=== PATIENT | male | born 1985 | race Caucasian/White ===

== ENCOUNTER → 2016-08-30 | Outpatient (CLI) | payer BC ==
[~2016-08-30] VITALS: Ht 180.3 cm; Wt 207.3 kg
[~2016-08-30] MED LIST: ALBUAER19 INH; VNTHFA/IN INH
[2016-08-30 15:18] VITALS: BP 173/86; PULSE 77; Ht 180.3 cm; Wt 207.3 kg
== END | disposition home or self-care (01) ==
LOC: C.NEUR 14:13
PROVIDERS: ATTEND Internal Medicine Pulmonary Disease
DX: G47.33 Obstructive sleep apnea (adult) (pediatric) (principal); E66.01 Morbid (severe) obesity due to excess calories

== ENCOUNTER 2017-01-01 08:31 | Emergency (ER) | payer BC ==
[~2017-01-01] VITALS: Ht 180.3 cm; Wt 218.2 kg
[~2017-01-01 08:31] MED LIST changes: -VNTHFA/IN INH
[2017-01-01 08:32] VITALS: TEMP 36.8; Ht 180.3 cm; Wt 218.2 kg
[2017-01-01] MEDS ORDERED: VNTHFA/IN INH (08:49)
--- NOTE | 2017-01-01 08:50 | EMERGENCY ROOM VISIT NOTE ---
History Report prepared by Sridhar: Justine Stout Under the Supervision of: Dr. Aicha Barreto D.O. First contact with patient: 08:38 Chief Complaint: CHEST PAIN Stated Complaint: CHEST PAIN,SOB Nursing Triage Summary: pt reports intermittent cp after lunch 1 day ago located midsternal , describes as sharp pain lasting 30 sec then going away . has happened 3 times this AM along with radiation to L arm. reports increased sob with exertion History of Present Illness The patient is a 31 year old male who presents to the Emergency Room with complaints of intermittent chest pain beginning yesterday. The patient states that he experienced 2 episodes yesterday while at work and another 3 episodes this morning. The patient states that each episode lasts about 30 seconds and he describes the pain during the episodes as sharp. He notes pain radiates to his left arm. He states that he is not exerting himself when the pain begins. The patient is experiencing nausea and shortness of breath. He notes a soreness between his shoulders for the past week. The patient has no cardiac or pulmonary history. He denies recent long traveling. Pt denies headache, change in vision, dizziness, fevers, chest pain, swelling to lower extremities, vomiting, diarrhea, pain with urination, and melena. Source of History: patient Onset: yesterday Position: chest Quality: sharp Timing: intermittent Associated Symptoms: + SOB, + nausea Note: The patient is experiencing left arm pain. Review of Systems See HPI for pertinent positives & negatives. A total of 10 systems reviewed and were otherwise negative. Past Medical & Surgical Medical Problems: (1) Asthma (2) Cellulitis (3) Morbid obesity (4) Pneumonia (5) Tonsillectomy Family History Diabetes mellitus Heart disease Hypertension Social History Smoking Status: Never Smoker Alcohol Use: occasionally Drug Use: none Marital Status: Housing Status: lives with significant other Occupation Status: employed Current/Historical Medications Scheduled Albuterol Hfa (Ventolin Hfa), 2-4 PUFFS INH Q4H Allergies Coded Allergies: Levofloxacin (Verified Allergy, Mild, RASH, 01/01/17) Physical Exam Vital Signs Date Time Temp Pulse Resp B/P (MAP) Pulse Ox O2 Delivery O2 Flow Rate FiO2 01/01/17 11:31 88 18 144/79 98 01/01/17 10:10 78 18 149/77 98 Room Air 01/01/17 08:48 81 01/01/17 08:32 36.8 84 20 156/86 97 Room Air Physical Exam GENERAL: morbidly obese, alert, well appearing, well nourished, no distress, non -toxic EYE EXAM: normal conjunctiva, PERRL and EOM's grossly intact OROPHARYNX: no exudate, no erythema, lips, buccal mucosa, and tongue normal and mucous membranes are moist NECK: supple, no nuchal rigidity, no adenopathy, non-tender LUNGS: Clear to auscultation. Normal chest wall mechanics HEART: no murmurs, S1 normal and S2 normal ABDOMEN: abdomen soft, non-tender, normo-active bowel sounds, no masses, no rebound or guarding. BACK: Back is symmetrical on inspection and there is no deformity, no midline tenderness, no CVA tenderness. SKIN: no rashes and no bruising UPPER EXTREMITIES: upper extremities are grossly normal. LOWER EXTREMITIES: No pitting edema. NEURO EXAM: Normal sensorium, cranial nerves II-XII [grossly] intact, normal speech, no [gross] weakness of arms, no [gross] weakness of legs. [No drift. Finger to nose intact. Gross sensation intact.] Medical Decision & Procedures ER Provider Diagnostic Interpretation: XRAY result has been interpreted by the radiologist and reviewed by me. SINGLE VIEW CHEST CLINICAL HISTORY: Atypical chest pain. FINDINGS: 2 AP, portable, upright chest radiographs are compared to study dated 03/25/2016 and correlated with chest CT dated 03/15/2014. The examination is significantly degraded by portable technique, large body habitus, and apical lordotic positioning. The heart is top normal for projection. There is mild chronic elevation of the right hemidiaphragm. The lungs and pleural spaces are grossly clear. No pneumothorax is seen. The bony thorax is grossly intact. IMPRESSION: No acute cardiopulmonary abnormality. Electronically signed by: Dinesh Flower M.D. 01/01/2017 9:12 AM Dictated Date/Time: 01/01/2017 9:10 AM Laboratory Results 01/01/17 08:44 Red Blood Count 5.38, Mean Corpuscular Volume 82.0, Mean Corpuscular Hemoglobin 28.4, Mean Corpuscular Hemoglobin Concent 34.7, Mean Platelet Volume 9.1, Neutrophils (%) (Auto) 62.3, Lymphocytes (%) (Auto) 23.7, Monocytes (%) (Auto) 9.8, Eosinophils (%) (Auto) 2.6, Basophils (%) (Auto) 0.7, Neutrophils # (Auto) 4.72, Lymphocytes # (Auto) 1.80, Monocytes # (Auto) 0.74, Eosinophils # (Auto) 0.20, Basophils # (Auto) 0.05 01/01/17 08:44 Test 01/01/17 08:44 White Blood Count 7.58 K/uL (4.8-10.8) Red Blood Count 5.38 M/uL (4.7-6.1) Hemoglobin 15.3 g/dL (14.0-18.0) Hematocrit 44.1 % (42-52) Mean Corpuscular Volume 82.0 fL (80-100) Mean Corpuscular Hemoglobin 28.4 pg (25-34) Mean Corpuscular Hemoglobin Concent 34.7 g/dl (32-36) Platelet Count 236 K/uL (130-400) Mean Platelet Volume 9.1 fL (7.4-10.4) Neutrophils (%) (Auto) 62.3 % Lymphocytes (%) (Auto) 23.7 % Monocytes (%) (Auto) 9.8 % Eosinophils (%) (Auto) 2.6 % Basophils (%) (Auto) 0.7 % Neutrophils # (Auto) 4.72 K/uL (1.4-6.5) Lymphocytes # (Auto) 1.80 K/uL (1.2-3.4) Monocytes # (Auto) 0.74 K/uL (0.11-0.59) Eosinophils # (Auto) 0.20 K/uL (0-0.5) Basophils # (Auto) 0.05 K/uL (0-0.2) RDW Standard Deviation 41.0 fL (36.4-46.3) RDW Coefficient of Variation 13.6 % (11.5-14.5) Immature Granulocyte % (Auto) 0.9 % Immature Granulocyte # (Auto) 0.07 K/uL (0.00-0.02) Prothrombin Time 10.8 SECONDS (9.0-12.0) Prothromb Time International Ratio 1.0 (0.9-1.1) D-Dimer 280 ug/L FEU (0-500) Anion Gap 8.0 mmol/L (3-11) Est Creatinine Clear Calc Drug Dose 231.5 ml/min Estimated GFR () 132.7 Estimated GFR (Non- 114.5 BUN/Creatinine Ratio 15.1 (10-20) Calcium Level 8.9 mg/dl (8.5-10.1) Total Bilirubin 0.5 mg/dl (0.2-1) Aspartate Amino Transf (AST/SGOT) 21 U/L (15-37) Alanine Aminotransferase (ALT/SGPT) 38 U/L (12-78) Alkaline Phosphatase 51 U/L (45-117) Troponin I < 0.015 ng/ml (0-0.045) Total Protein 8.1 gm/dl (6.4-8.2) Albumin 3.8 gm/dl (3.4-5.0) Globulin 4.3 gm/dl (2.5-4.0) Albumin/Globulin Ratio 0.9 (0.9-2) Lipase 129 U/L (73-393) Laboratory results per my review. ECG Indication: chest pain Rate (beats per minute): 78 Rhythm: normal sinus Findings: T-wave inversion (lead 3 and aVF), no ectopy, other (normal axis and normal intervals) ED Course 0841: The patient was evaluated in room B12. A complete history and physical exam was performed. 1009: I reevaluated the patient. He has had no recurrence of the pain. I discussed his test results with him. I discussed the need for follow up. 1043: Upon reevaluation, the patient is feeling better. I discussed the findings and the treatment plan with the patient. He verbalizes agreement and understanding. He was discharged home. Medical Decision The patient is a 31 year old male who presents to the ED with complaints of chest pain. Differential diagnoses includes but is not limited to acute coronary syndrome, myocardial infarction, pericarditis, pulmonary embolus, aortic dissection, pneumonia, pneumothorax, musculoskeletal, shingles, esophageal. Medication Reconciliation: I attest that I have personally reviewed the patient' s current medication list. Blood pressure screening: Patient was found to have an elevated blood pressure and was referred to their primary doctor for recheck and further treatment. Patient well-appearing here with no recurrent episodes of chest pain. Vital signs stable throughout. Labs and imaging reassuring. Patient's heart score 1. Discussed with patient follow-up with family doctor, possible differential diagnoses, symptoms to watch and return for, he verbalized understanding was agreeable with plan. Doubt dissection, aneurysm, ACS, PE, tamponade, effusion, perforation, GI bleed, pneumothorax, infiltrate. Patient with mild hypertension here, however doubt hypertensive urgency/emergency. Impression Primary Impression: Chest pain Additional Impressions: Morbid obesity Hypertension Scribe Attestation The scribe's documentation has been prepared under my direction and personally reviewed by me in its entirety. I confirm that the note above accurately reflects all work, treatment, procedures, and medical decision making performed by me. Departure Information Dispostion Home / Self-Care Referrals Kristian Olea M.D. (PCP) Forms HOME CARE DOCUMENTATION FORM, IMPORTANT VISIT INFORMATION Patient Instructions My [facility] Additional Instructions Please follow up with your family doctor. Please continue to monitor for any recurrence of symptoms. If you develop any recurrent symptoms, develop trouble breathing, dizziness, vomiting, sweating, fevers, or any other new or concerning symptoms please return the emergency room. Problem Qualifiers Primary Impression: Chest pain Chest pain type: unspecified Qualified Codes: R07.9 - Chest pain, unspecified Additional Impressions: Hypertension Hypertension type: unspecified Qualified Codes: I10 - Essential (primary) hypertension
[2017-01-01 08:58] LABS: BASO % 0.7 %; BASO ABS # 0.05 K/uL (0-0.2); COMPLETE YES; EOS % 2.6 %; HEMATOCRIT 44.1 % (42-52); IG% 0.9 %; LYMPH % 23.7 %; MEAN CORPUSCULAR HEMOGLOBIN 28.4 pg (25-34); MEAN CORPUSCULAR HGB CONC 34.7 g/dl (32-36); MEAN PLATELET VOLUME 9.1 fL (7.4-10.4); MONO % 9.8 %; NEUT % 62.3 %; PLATELET COUNT 236 K/uL (130-400); RED BLOOD COUNT 5.38 M/uL (4.7-6.1); WHITE BLOOD COUNT 7.58 K/uL (4.8-10.8)
--- NOTE | 2017-01-01 09:13 | DIAGNOSTIC IMAGING REPORT ---
SINGLE VIEW CHEST CLINICAL HISTORY: Atypical chest pain. FINDINGS: 2 AP, portable, upright chest radiographs are compared to study dated 03/25/2016 and correlated with chest CT dated 03/15/2014. The examination is significantly degraded by portable technique, large body habitus, and apical lordotic positioning. The heart is top normal for projection. There is mild chronic elevation of the right hemidiaphragm. The lungs and pleural spaces are grossly clear. No pneumothorax is seen. The bony thorax is grossly intact. IMPRESSION: No acute cardiopulmonary abnormality. Electronically signed by: Dinesh Flower M.D. 01/01/2017 9:12 AM Dictated Date/Time: 01/01/2017 9:10 AM
[2017-01-01 09:18] LABS: ALT/SGPT 38 U/L (12-78); BLOOD UREA NITROGEN 13 mg/dl (7-18); BUN/CREATININE RATIO 15.1 (10-20); CALCIUM 8.9 mg/dl (8.5-10.1); CARBON DIOXIDE 23 mmol/L (21-32); CHLORIDE 109 mmol/L (98-107); CREATININE 0.85 mg/dl (0.60-1.40); GLUCOSE 104 mg/dl (70-99); POTASSIUM 3.8 mmol/L (3.5-5.1); SODIUM 140 mmol/L (136-145)
[2017-01-01 09:23] LABS: ALB/GLOB RATIO 0.9 (0.9-2); ALKALINE PHOSPHATASE 51 U/L (45-117); AST/SGOT 21 U/L (15-37)
[2017-01-01 09:32] LABS: PROTHROMBIN TIME (PATIENT) 10.8 SECONDS (9.0-12.0)
[2017-01-01 11:31] VITALS: BP 144/79; PULSE 88; O2SAT 98
== END 2017-01-01 11:32 | disposition home or self-care (01) ==
LOC: C.EDB 08:32
DX: R07.9 Chest pain, unspecified (principal); E66.01 Morbid (severe) obesity due to excess calories; I10 Essential (primary) hypertension; J45.909 Unspecified asthma, uncomplicated; L03.90 Cellulitis, unspecified; Z87.01 Personal history of pneumonia (recurrent); Z83.3 Family history of diabetes mellitus; Z82.49 Family history of ischemic heart disease and other diseases of the circulatory system

== ENCOUNTER 2024-12-10 03:47 | Observation (INO) ==
--- NOTE | 2024-12-10 04:20 | Emergency Department Note ---
Impression & Plan Chest pain ED Provider Note NAME: TAMELA MARTIN AGE: 39 SEX: Male INFORMANT: Patient ED PROVIDER(S): Tyson Thompson MD CHIEF COMPLAINT: Chest pain PLAN: Disposition: Admitted Outpatient prescription management: none Referral: None MEDICAL DECISION MAKING: Patient presented because of chest pain. His ECG did show some subtle changes laterally. Old changes inferiorly. Chest x-ray was unremarkable. Patient CBC and chemistry panels are negative. The patient had a negative cardiac troponin. He was treated with aspirin nitroglycerin and did note resolution of his pain. His blood pressure was much improved as well. Consultation was made with Dr. Angel of the [facility] service. Case discussed and diagnostics were reviewed. Patient was evaluated in the ER for further management. We did discuss initiation of CT of the chest. This was ordered. I refer you to the EMR for further details. Care/management discussed with: utilities manager Level of care consideration(s): After review of the information above and other included data, I feel the patient requires escalation of care to admission Triage Nursing notes: reviewed and agree them. Vital Signs: reviewed and remarkable for hypertension Additional History obtained from: none Chronic Medical/Social Conditions affecting care: none Prior/ Outside/ External records reviewed: none Differential Diagnosis: Cardiac ischemia, aortic dissection, pulmonary embolism, pneumothorax, pneumonia, pericarditis, myocarditis, esophageal rupture, GERD, cholecystitis, pancreatitis, musculoskeletal, as well as other pathologies. Diagnostics, independently interpreted by me: ECG: Twelve-lead ECG reveals a sinus rhythm with first-degree AV block at 87 bpm. Septal Q wave. Inferior lateral T wave and ST depression. When compared to 02/25/2024 the inferior changes are old. The subtle lateral depression is new. Cardiac Monitoring: Cardiac monitoring ordered by me: The patient was placed on continuous cardiac monitoring and observed. It revealed a normal sinus rhythm at 80 beats per minute without ectopy or evidence of dysrhythmia. Medical decision rules: Patient is moderate risk by HEART SCORE. Imaging studies: Chest x-ray. Findings: A chest x-ray was performed and revealed no pneumothorax, effusion, infiltrate, pulmonary edema, free air under the diaphragm, or wide mediastinum. Impression: No acute disease. I refer you to the EMR for further details. HPI: 39 year old Male arrives for evaluation of chest pain. This started about 6 hours ago and is retrosternal. The patient also notes the following associated symptoms, none. Patient states this occurred after eating. He has been able to drink water and everything feels like it is going down. He does not feel like any food is stuck. Denies any prior history of the same.. The patient has found no relieving factors. Current pain is rated as 3/10. At its peak pain was a 7. Pt denies LOC, headache, fevers, chills, diaphoresis, visual changes, neck pain, breathing difficulties, nausea, vomiting, abdominal pain, back pain, melena, hematochezia, urinary symptoms, numbness, weakness, lymphadenopathy, rash, or other complaints. His. PAST MEDICAL HISTORY: See Below, diabetes, hypertension PAST SURGICAL HISTORY: See Below, SOCIAL HISTORY: See Below, non-smoker HOME MEDICATIONS: See Below ALLERGIES: See Below VITALS: See Below PHYSICAL EXAMINATION: GENERAL: Awake, alert, well-appearing, in no distress HENT: Normocephalic, atraumatic. Oropharynx unremarkable. EYES: Normal conjunctiva. Sclera non-icteric. NECK: Inspection normal. Non-tender. Supple. No nuchal rigidity. FROM. No masses. RESPIRATORY: Clear to auscultation. No wheezes. No rales. Normal respiratory effort. CARDIAC: Normal rate. Normal rhythm. No murmurs. No rubs. Extremities warm and well perfused. Pulses equal. No JVD. GI: Soft, non-distended. No tenderness to palpation. No rebound or guarding. No masses. RECTAL: Deferred. MUSCULOSKELETAL: Atraumatic. Chest examination reveals no tenderness. The back is symmetrical on inspection without obvious abnormality. There is no CVA tenderness to palpation. No joint edema. LOWER EXTREMITIES: Chronic venous discoloration noted. There is discrepancy in size from the left leg to the right leg with the left being larger. Patient states that this is chronic. 1+ edema on the right and 2+ on the left NEURO: Normal sensorium. No sensory or motor deficits noted. SKIN: No rash or jaundice noted. 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) Family history of sudden cardiac in father Left ventricular hypertrophy Hypertension Depression Hepatic steatosis (Chronic) Morbid obesity (Chronic) Nocturnal hypoxemia Severe sleep apnea 2012, TXED WITH bipap Medical History Abnormal electrocardiography Mass of left lower leg Morbid obesity with BMI of 60.0-69.9, adult Diabetes type 2, uncontrolled Surgical History History of hand surgery History of placement of ear tubes Hx of tonsillectomy (09/04/12) Family History Aunt Diabetes Grandmother (Paternal) Heart disease Father Hypertension Sleep apnea Diabetes Obesity Mother Sleep apnea Obesity Denies family history of Ovarian cancer Prostate cancer Depression Myocardial infarction Breast cancer Colorectal cancer Stroke Social History Smoking Status: Never smoker Second Hand Exposure: No; Do You Dip or Chew Tobacco: No; Hx Alcohol Use: Yes Alcohol type: beer, wine and hard liquor Alcohol Intake Frequency: Monthly or Less Hx Substance Use: No Preferred Language: Lebanese Communication Ability: Effective Visual Impairment: Limited Hearing Ability: Normal 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 marital status: Current Living Situation: Spouse and Family current occupational status: employed 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 How many Children do You have: 3 Feels Safe at Home: Yes Childhood Exposure to Second-Hand Smoke: No Diet: regular caffeine: Yes Dental Care, Regularly: No Physical Activity Frequency: Does not Exercise Seatbelt Use: sometimes Sunscreen Use: Yes (only when hes swimming ) Allergies Allergies Allergy/AdvReac Type Severity Reaction Status Date / Time levofloxacin Allergy Intermediate RASH Verified 09/08/24 11:09 metformin AdvReac Intermediate made him Verified 09/08/24 11:09 "castro" Home Meds Home Medications Medication Instructions Recorded Confirmed cetirizine 10 mg capsule (Zyrtec) 10 mg PO QAM 05/16/21 09/08/24 oxymetazoline 0.05 % nasal spray 2 spray intranasal Q12H PRN 03/12/24 09/08/24 (Mucinex Sinus-Max) Congestion Previous Rx's Medication Instructions Recorded amlodipine 5 mg tablet 5 mg PO QAM #30 tabs 01/22/24 BiPap Supplies #1 ea 05/13/24 losartan 100 1 tab PO DAILY #90 tabs 09/08/24 mg-hydrochlorothiazide 25 mg tablet cephalexin 500 mg capsule 500 mg PO QID #28 caps 09/10/24 tirzepatide 15 mg/0.5 mL 15 mg (0.5 mL) subcut Q7D #2 mL 10/27/24 subcutaneous pen injector Results & Data (ED) Vital Signs Vital Signs - 24 hr 12/10/24 03:51 12/10/24 04:07 12/10/24 04:17 Temperature 36.6 C Temperature Source Oral Pulse Rate 88 80 Pulse Rate [Apical] Pulse Rhythm [Apical] Respiratory Rate 24 Respiratory Effort / Characteristics Respiratory Depth Respiratory Pattern Blood Pressure 194/98 H Blood Pressure [Right Arm] Blood Pressure Mean 130 Blood Pressure Mean [Right Arm] Blood Pressure Position [Right Arm] Pulse Oximetry 96 95 Oxygen Delivery Method Room Air Room Air Sepsis Recent Fever Within 48 Hours No Sepsis New/Unexplained Change in Mental Status No Sepsis Action Taken by Nursing No Action Required 12/10/24 05:08 12/10/24 06:26 Temperature Temperature Source Pulse Rate Pulse Rate [Apical] 85 69 Pulse Rhythm [Apical] Regular Respiratory Rate 18 20 Respiratory Effort / Characteristics Non-Labored Spontaneous Respiratory Depth Normal Respiratory Pattern Regular Blood Pressure Blood Pressure [Right Arm] 153/78 H 125/79 Blood Pressure Mean Blood Pressure Mean [Right Arm] 103 94 Blood Pressure Position [Right Arm] Semi-fowlers Pulse Oximetry 96 98 Oxygen Delivery Method Room Air Room Air Sepsis Recent Fever Within 48 Hours Sepsis New/Unexplained Change in Mental Status Sepsis Action Taken by Nursing Laboratory Data 12/10/24 04:17 12/10/24 04:17 Lab Results 12/10/24 Range/Units 04:17 WBC 7.92 (4.8-10.8) K/ul RBC 5.46 (4.70-6.10) M/uL Hgb 15.4 (14.0-18.0) g/dl Hct 44.1 (42.0-52.0) % MCV 80.8 (80.0-100.0) fL MCH 28.2 (25.0-34.0) pg MCHC 34.9 (32.0-36.0) g/dL RDW Std Deviation 38.3 (36.4-46.3) fL RDW Coeff of Boom 13.3 (11.5-14.5) % Plt Count 251 (130-400) K/uL MPV 9.8 (9.4-12.4) fL Immature Gran % (Auto) 0.4 % Neut % (Auto) 64.7 % Lymph % (Auto) 24.9 % [place] % (Auto) 7.8 % Eos % (Auto) 1.6 % Baso % (Auto) 0.6 % Neut # (Auto) 5.12 (1.40-6.50) K/uL Lymph # (Auto) 1.97 (1.20-3.40) K/uL [place] # (Auto) 0.62 H (0.11-0.59) K/uL Eos # (Auto) 0.13 (0.00-0.50) K/uL Baso # (Auto) 0.05 (0.00-0.20) K/uL Immature Gran # (Auto) 0.03 (0.01-0.20) K/uL Sodium 136 (136-145) mmol/L Potassium 3.4 L (3.5-5.1) mmol/L Chloride 105 (98-107) mmol/L Carbon Dioxide 23 (21-32) mmol/L Anion Gap 8 (3-11) BUN 16 (6-23) mg/dl Creatinine 0.74 (0.6-1.4) mg/dl Est Cr Clr Drug Dosing 201.5 ml/min eGFR 116.74 BUN/Creatinine Ratio 21.6 H (10-20) Glucose 151 H (70-99(Fasting)) mg/dl Calcium 8.7 (8.6-10.3) mg/dl Magnesium 1.6 L (1.7-2.4) mg/dl Total Bilirubin 0.6 (0.2-1.0) mg/dl AST 19 (13-39) U/L ALT 31 (7-52) U/L Alkaline Phosphatase 49 (34-104) U/L Troponin I High Sens 4.4 (0-20) pg/ml Total Protein 7.3 (6.0-8.3) gm/dl Albumin 3.8 (3.4-5.0) gm/dl Globulin 3.5 (2.5-4.0) gm/dl Albumin/Globulin Ratio 1.1 (0.9-2) Lipase 37 (11-82) U/L Administered Medications Discontinued Medications Aspirin (Aspirin Chew 324 Mg) 324 mg PO NOW STA Stop: 12/10/24 04:51 Last Admin: 12/10/24 05:08 Dose: 324 mg Documented By: LEONOR Ioversol (Optiray 320 125ml) 125 ml IV ONCE ONE Stop: 12/10/24 06:21 Last Admin: 12/10/24 06:20 Dose: 118 ml Documented By: ABI Nitroglycerin (Nitroglycerin Sl 0.4 Mg/Tab Tab) 0.4 mg SL NOW STA Stop: 12/10/24 04:51 Last Admin: 12/10/24 05:08 Dose: 0.4 mg Documented By: LEONOR Imaging Data Radiologist's Impression: Chest X-Ray 12/10/24 03:58 EXAM: XR chest 1V portable CLINICAL HISTORY: Chest pain, nonspecific TECHNIQUE: Radiograph of chest was acquired. 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 The cardiomediastinal silhouette is within normal limits. No acute osseous abnormality. IMPRESSION: 1. No acute cardiopulmonary disease. No other new interval abnormality since prior study. Electronically signed by Maldonado Eddy 12-10-2024 05:42 AM Chest CTA 12/10/24 05:44 EXAM: CT angio chest PE protocol CLINICAL HISTORY: chest pain, eval for PE TECHNIQUE: Contiguous axial images were obtained from the neck base through the upper abdomen following intravenous administration of iodinated contrast material. Angiographic images were processed, 3D MIP images were acquired for interpretation. If IV contrast material had not been administered, the likelihood of detecting abnormalities relevant to the patient's condition would have been substantially decreased. Coronal and sagittal 3-D MIPs were likewise performed and indicated to increase the sensitivity of detectin diffuse clinically relevant pathology. CT scan was performed according to ALARA (as low as reasonable achievable). COMPARISON: None. FINDINGS: Adequate contrast bolus without evidence of pulmonary embolism. The central airways are patent. Mosaic attenuation of bilateral lung alcaraz Rest of the lungs are clear. No pleural effusion. Cardiomegaly The aorta, and pulmonary arteries are of normal size and configuration. There are coronary artery and aortic atherosclerotic calcifications. No pericardial effusion is identified. The thyroid is unremarkable. No mediastinal, hilar, or axillary lymphadenopathy is noted. No suspicious lytic or sclerotic osseous lesions are identified. IMPRESSION: No evidence of pulmonary embolism. Mosaic attenuation of bilateral lung alcaraz, possibility of small airway disease. Cardiomegaly- suggest 2D ECHO correlation Electronically signed by Maldonado Eddy 12-10-2024 07:18 AM Discharge Plan Visit Data Chief Complaint: Chest Pain Stated Complaint: CHEST PAIN,DISCOMFORT ED Provider: Tyson Thompson Discharge Problem: Chest pain Patient Disposition: Admitted As Inpatient Condition: Good Forms Stand Alone Forms: My [facility] [place] [employer] Prescriptions Prescriptions: No Action amlodipine 5 mg tablet 5 mg PO QAM Qty: 30 5RF (DME) BiPap Supplies Misc See Rx Instructions .Route Qty: 1 0RF Rx Instructions: Tubing, mask and BIPAP supplies x99m cephalexin 500 mg capsule 500 mg PO QID Qty: 28 0RF tirzepatide 15 mg/0.5 mL pen injector 15 mg subcut Q7D Qty: 2 5RF losartan-hydrochlorothiazide 100-25 mg tablet 1 tab PO DAILY Qty: 90 3RF oxymetazoline [Mucinex Sinus-Max] 0.05 % spray,non-aerosol 2 spray intranasal Q12H PRN (Reason: Congestion) Zyrtec 10 mg Capsule 10 mg PO QAM Referrals Referrals: Nikolas Nixon DO [Primary Care Provider] -
[2024-12-10 04:32] LABS: Basophils # (auto) 0.05 K/uL (0.00-0.20); Basophils % (auto) 0.6 %; Eosinophils # (auto) 0.13 K/uL (0.00-0.50); Eosinophils % (auto) 1.6 %; Hematocrit (blood only) 44.1 % (42.0-52.0); Hemoglobin 15.4 g/dl (14.0-18.0); Immature Granulocytes # (auto) 0.03 K/uL (0.01-0.20); Immature Granulocytes % (auto) 0.4 %; Lymphocytes # (auto) 1.97 K/uL (1.20-3.40); Lymphocytes % (auto) 24.9 %; Mean Corpuscular Hemoglobin 28.2 pg (25.0-34.0); Mean Corpuscular Hgb Conc 34.9 g/dL (32.0-36.0); Mean Corpuscular Volume 80.8 fL (80.0-100.0); Mean Platelet Volume 9.8 fL (9.4-12.4); Monocytes # (auto) 0.62 K/uL (0.11-0.59); Monocytes % (auto) 7.8 %; Neutrophils # (auto) 5.12 K/uL (1.40-6.50); Neutrophils % (auto) 64.7 %; Platelet Count 251 K/uL (130-400); RDW Coefficient of Variation 13.3 % (11.5-14.5); RDW Standard Deviation 38.3 fL (36.4-46.3); Red Blood Count 5.46 M/uL (4.70-6.10); White Blood Count 7.92 K/ul (4.8-10.8)
[2024-12-10 04:48] LABS: Albumin Globulin Ratio 1.1 (0.9-2); Albumin Level 3.8 gm/dl (3.4-5.0); BUN Creatinine Ratio 21.6 (10-20); Bilirubin,Total 0.6 mg/dl (0.2-1.0); Calcium 8.7 mg/dl (8.6-10.3); Creatinine Clr Calc Pharmacy 201.5 ml/min; Globulin 3.5 gm/dl (2.5-4.0); Potassium 3.4 mmol/L (3.5-5.1); Total Protein 7.3 gm/dl (6.0-8.3)
[2024-12-10 04:55] LABS: Troponin I High Sensitivity 4.4 pg/ml (0-20)
[2024-12-10] MEDS: ASPIRIN CHEW 324 MG PO STA (05:08)
[2024-12-10] MEDS: NITROGLYCERIN SL 0.4 MG/TAB TAB SL STA (05:08)
--- NOTE | 2024-12-10 05:43 | XRay Report ---
EXAM: XR chest 1V portable CLINICAL HISTORY: Chest pain, nonspecific TECHNIQUE: Radiograph of chest was acquired. 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 The cardiomediastinal silhouette is within normal limits. No acute osseous abnormality. IMPRESSION: 1. No acute cardiopulmonary disease. No other new interval abnormality since prior study. Electronically signed by Maldonado Eddy 12-10-2024 05:42 AM
[2024-12-10] MEDS: OPTIRAY 320 125ml IV ONE (06:20)
--- NOTE | 2024-12-10 06:34 | History & Physical Report ---
Date of Service December 10, 2024 Assessment & Plan (1) Chest pain: (2) Hypokalemia: (3) Hypomagnesemia: (4) Abnormal electrocardiography: Plan Patient is a 39-year-old male with past medical history of type II DM and hypertension. Patient presented due to chest pain after dinner that was relieved with nitroglycerin and aspirin in the ED. EKG showed ST changes in lateral leads, chronic changes in inferior leads. He is being admitted for cardiac workup including echocardiogram. Troponin 4.4. #chest paincurrently 2/10 at time of admission. Troponin 4.4. Does have risk factors with type II DM, HTN, obesity. EKG shows chronic T wave changes in inf erior leads however new subtle ST depressions in lateral leads. K+ 3.4, magnesium 1.6 - 2/2 depletion with recent diarrhea. CTA negative. K+ repleted with 40 mEq p.o. - 2G IV magnesium ordered Echocardiogram ordered Cardiology consulted Trend troponin every 6 hours Nitroglycerin as needed for chest pain EKG as needed with chest pain Differential includes possible cholecystitis as pain did occur after eating and is atypical for chest pain. If cardiac workup negative, consider further abdominal workup. #type II DMon Mounjaro at home, most recent A1c 6.5%. Defer SSI, order if needed based off glucose #OSACPAP chest ordered #HTNcontinue amlodipine and Losartanhydrochlorothiazide #obesityBMI 48.6. VTE ppx: Lovenox Dispo: med/tele Admission and Anticipated Discharge Date Admission Date: 12/10/24 History of Present Illness Chief Complaint: chest pain Primary Care Provider: Nikolas Nixon DO Patient is a 39-year-old male with past medical history of type II DM and hypertension. Patient presented due to chest pain after dinner that was relieved with nitroglycerin and aspirin in the ED. EKG showed ST changes in lateral leads, chronic changes in inferior leads. He is being admitted for cardiac workup including echocardiogram. Troponin 4.4. Patient seen bedside. He stated that he was eating dinner when he developed sharp midsternal chest pain that gets worse with exertion and relieved with rest. 7/10 at worst, 2/10 at rest/currently. When patient moves around even going from laying to sitting up he exerts himself resulting in chest pain. It resolves itself in several seconds when he rests. Stated nitroglycerin and aspirin in ED did relieve some of his pain. Stated he has never had pain like this before. He typically is somewhat active and tries to walk around, denies chest pain during these episodes. He has been more sedentary for the past week as he has been feeling depressed. Denies any recent long travel or periods of sitting. Denies any recent trauma. Denies any worsening lower extremity edema, improved from baseline. Denies any calf pain. Low concern for DVT. Patient is nonhypoxic however stated chest pain does get worse with deep inspiration. He denies any recent fevers, chills, chest cough, congestion, nausea, vomiting. Does endorse diarrhea however recently increase his Mounjaro dosage. Denies any nicotine or alcohol use. Denies any personal history of DC, father did from sudden cardiac arrest however denies family history of DC. Does not use oxygen at baseline however does use CPAP at bedtime for sleep apnea. Got some medications yesterday, will be due this a.m. Wishes to be full code. Allergies Allergy/AdvReac Type Severity Reaction Status Date / Time levofloxacin Allergy Intermediate RASH Verified 09/08/24 11:09 metformin AdvReac Intermediate made him Verified 09/08/24 11:09 "castro" Home Medications Medication Instructions Recorded Confirmed Type cetirizine 10 mg capsule (Zyrtec) 10 mg PO QAM 05/16/21 09/08/24 History amlodipine 5 mg tablet 5 mg PO QAM #30 tabs 01/22/24 09/08/24 Rx oxymetazoline 0.05 % nasal spray 2 spray intranasal Q12H PRN 03/12/24 09/08/24 History (Mucinex Sinus-Max) Congestion BiPap Supplies #1 ea 05/13/24 09/08/24 Rx losartan 100 1 tab PO DAILY #90 tabs 09/08/24 09/08/24 Rx mg-hydrochlorothiazide 25 mg tablet cephalexin 500 mg capsule 500 mg PO QID #28 caps 09/10/24 Rx tirzepatide 15 mg/0.5 mL 15 mg (0.5 mL) subcut Q7D #2 mL 10/27/24 Rx subcutaneous pen injector Past Med/Surg History Problem List (Updated 12/10/24 @ 07:15 by Dottie Manley PA-C) Abnormal electrocardiography Hypomagnesemia Hypokalemia Chest pain (Acute) Elevated LDL cholesterol level Anxiety Type 2 diabetes mellitus with obesity (Acute) Family history of sudden cardiac in father Left ventricular hypertrophy Hypertension Depression Hepatic steatosis (Chronic) Morbid obesity (Chronic) Nocturnal hypoxemia Severe sleep apnea 2012, TXED WITH bipap Medical History Abnormal electrocardiography Mass of left lower leg Morbid obesity with BMI of 60.0-69.9, adult Diabetes type 2, uncontrolled Surgical History History of hand surgery History of placement of ear tubes Hx of tonsillectomy (09/04/12) Family History Aunt Diabetes Grandmother (Paternal) Heart disease Father Hypertension Sleep apnea Diabetes Obesity Mother Sleep apnea Obesity Denies family history of Ovarian cancer Prostate cancer Depression Myocardial infarction Breast cancer Colorectal cancer Stroke Social History Smoking Status: Never smoker Second Hand Exposure: No; Do You Dip or Chew Tobacco: No; Hx Alcohol Use: Yes Alcohol type: beer, wine and hard liquor Alcohol Intake Frequency: Monthly or Less Hx Substance Use: No Preferred Language: [place] Communication Ability: Effective Visual Impairment: Limited Hearing Ability: Normal 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 Control 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 Non-toxic appearing. HEENT- EOMI, mucous membranes moist. Hearing grossly intact. Heart-normal S1 and S2. No murmurs, rubs or gallops. Lungs- decreased bilaterally, no respiratory distress, no accessory muscle use. Abdomen-normal bowel sounds and soft. No ascites noted. Non-tender. Extremities- no clubbing, cyanosis, or edema. Rheumatologic-normal range of motion. Psychiatric-normal affect. Results & Data Results & Data Vital Signs (Past 12 Hours) Vital Signs Temp Pulse Pulse Resp BP BP Pulse Ox 12/10/24 06:26 69 20 125/79 98 12/10/24 05:08 85 18 153/78 H 96 12/10/24 04:17 95 12/10/24 04:07 80 12/10/24 03:51 36.6 C 88 24 194/98 H 96 O2 Del Method 12/10/24 06:26 Room Air 12/10/24 05:08 Room Air 12/10/24 04:17 Room Air 12/10/24 04:07 12/10/24 03:51 Room Air Laboratory Results Reviewed CBC, CMP, troponin Diagnostic Findings reviewed CXR, chest CTA pending Medications Administered EDaspirin 325 Mg p.o., sl nitro Code Status & VTE Plan Code Status full code VTE Prophylaxis Plan VTE Prophylaxis will be ordered: Yes Supervising Physician Co-Signing Physician Notes BOBBY Supervision Note: I personally saw and examined the patient. I verified all yun points and agree with BOBBY Manley with the following exceptions and/or additions: S-this patient is a 15-lwhg-paz-year-old male with DM2, HTN, morbid obesity here with chest pain that is somewhat atypical with coming on after eating, worse with exertion, improved with nitroglycerin. Initial troponin negative. ECG with some subtle ST depressions in lateral leads. History and ROS otherwise reviewed as above O- Vitals reviewed Gen: AAOx3, NAD, morbidly obese HEENT: Anicteric sclerae, EOMI CV: RRR no mgr nl S1S2 Pulm: CTAB no wcr Abd: +BS soft NT ND no masses or hernias Ext: Trace pitting edema legs bilaterally A/R-41-pwwu-old male here with history as above with chest pain. Given cardiac risk factors, needs echo and likely nuclear medicine stress test. Defer to cardiology on choice of stress test - Trend serial troponin - Could be GI related as came on after eating-perhaps esophageal spasm which would also improve nitroglycerin-rule out cardiac issues first CT angiogram chest negative for PE PG Care Time/CCT Total # of Minutes Spent Total Time Spent with Patient: Total time spent is greater than 50% in coordination of care (as documented) at patient's floor/unit and/or counseling patient: Coding Level of Care Code 65343 INT INP/OBS CARE 3/75MIN Diagnoses Chest pain R07.9 Hypokalemia E87.6 Hypomagnesemia E83.42 Abnormal electrocardiography R94.31
[2024-12-10 07:07] LABS: Magnesium 1.6 mg/dl (1.7-2.4)
--- NOTE | 2024-12-10 07:19 | CT Scan Report ---
EXAM: CT angio chest PE protocol CLINICAL HISTORY: chest pain, eval for PE TECHNIQUE: Contiguous axial images were obtained from the neck base through the upper abdomen following intravenous administration of iodinated contrast material. Angiographic images were processed, 3D MIP images were acquired for interpretation. If IV contrast material had not been administered, the likelihood of detecting abnormalities relevant to the patient's condition would have been substantially decreased. Coronal and sagittal 3-D MIPs were likewise performed and indicated to increase the sensitivity of detectin diffuse clinically relevant pathology. CT scan was performed according to ALARA (as low as reasonable achievable). COMPARISON: None. FINDINGS: Adequate contrast bolus without evidence of pulmonary embolism. The central airways are patent. Mosaic attenuation of bilateral lung alcaraz Rest of the lungs are clear. No pleural effusion. Cardiomegaly The aorta, and pulmonary arteries are of normal size and configuration. There are coronary artery and aortic atherosclerotic calcifications. No pericardial effusion is identified. The thyroid is unremarkable. No mediastinal, hilar, or axillary lymphadenopathy is noted. No suspicious lytic or sclerotic osseous lesions are identified. IMPRESSION: No evidence of pulmonary embolism. Mosaic attenuation of bilateral lung alcaraz, possibility of small airway disease. Cardiomegaly- suggest 2D ECHO correlation Electronically signed by Maldonado Eddy 12-10-2024 07:18 AM
[2024-12-10] MEDS: POTASSIUM CHLORIDE CRTAB 20 MEQ TABCR PO STA (07:45)
[2024-12-10] MEDS: MAGNESIUM SULFATE / D5W 1 GM/100 ML BAG IV SCH (07:46)
[2024-12-10] MEDS ORDERED: NITROGLYCERIN SL 0.4 MG/TAB TAB SL PRN (09:12)
[2024-12-10] MEDS ORDERED: DOCUSATE SODIUM 100 MG CAP PO PRN (09:12)
[2024-12-10] MEDS ORDERED: ACETAMINOPHEN 325 MG TAB PO PRN (09:12)
[2024-12-10] MEDS ORDERED: ONDANSETRON INJ 2 MG/ML 2 ML VIAL IV PRN (09:12)
[2024-12-10] MEDS ORDERED: MELATONIN 3 MG TAB PO PRN (09:12)
[2024-12-10] MEDS: amLODIPine BESYLATE 5 MG TAB PO SCH (09:47)
[2024-12-10] MEDS: ENOXAPARIN INJ 40 MG/0.4 ML SYR SQ SCH (09:47)
[2024-12-10] MEDS: LOSARTAN/HCTZ 50/12.5MG TAB PO SCH (09:47)
--- NOTE | 2024-12-10 10:59 | Cardiology Consultation ---
Date of Consultation December 10, 2024 Assessment & Plan (1) Abnormal electrocardiography: 2. Atypical chest pain 3. Type 2 diabetes 4. Dyslipidemia 5. Class III obesity, FELIX on CPAP 6. Hypertension 7. Hypokalemia, hypomagnesemia Patient here with new intermittent chest pain which is primarily positional. No new exertional symptoms or recent change in exercise tolerance. HS TropI completely normal x 2. Echo unchanged. Nongated chest CTA without coronary calcification or obvious signs of proximal CAD. He has longstanding ECG ST abnormalities which are slightly more pronounced laterally than before but overall suspect likely secondary to LVH, body habitus and mild electrolyte abnormalities. Very low suspicion for ACS. Feel patient's chest pain noncardiac. Do not feel patient needs additional ischemic testing/risk stratification at this time. If new exertional symptoms as an outpatient would consider Lexiscan SPECT with limited echo images/baseline ECG abnormalities. Continued ASCVD primary prevention and risk factor modification From a cardiac standpoint okay for discharge today and can follow-up with Dr. Guardado as scheduled. History of Present Illness Attending Physician: Bryanna Angel MD History of Present Illness Mr. Galeas is a pleasant 39-year-old man with a history of type 2 diabetes, class III obesity/severe FELIX on CPAP, hypertension, dyslipidemia and prior abnormal ECG who is seen today in the ED due to chest pain. Patient describes central, sharp chest pain beginning last night soon after meal. Since that time has had intermittent chest pain which occurs primarily if he bends over, stretches and with certain movements. Denies worsening pain with exertion. No real pain at rest. Has not had pain like this in the past. Still with intermittent pain in the ED. His initial ECG showed sinus rhythm with first-degree AV block, borderline LVH, poor R wave progression and ST depression/T wave inversion in 2-3, aVF as well as more pronounced ST depression in V4 through V6. Review of prior ECGs going back to 2016 shows similar findings although slightly more pronounced in lateral leads today. His HS TropI completely normal x 2. He had a chest CTA which was negative for PE. On my review left main/proximal LAD/circumflex/RCA without significant disease and no evidence of coronary artery calcification. Echo today technically limited but LV function appears preserved with no clear regional wall motion abnormalities. Family history: Father had sudden cardiac arrest, etiology unclear. No other history of CAD. Social history: , Has 3 daughters ages 9, 7, 5. 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 Non-smoker. Allergies Allergy/AdvReac Type Severity Reaction Status Date / Time levofloxacin Allergy Intermediate RASH Verified 09/08/24 11:09 metformin AdvReac Intermediate made him Verified 09/08/24 11:09 "castro" Home Medications Medication Instructions Recorded Confirmed Type cetirizine 10 mg capsule (Zyrtec) 10 mg PO QAM 05/16/21 12/10/24 History amlodipine 5 mg tablet 5 mg PO QAM #30 tabs 01/22/24 12/10/24 Rx oxymetazoline 0.05 % nasal spray 2 spray intranasal Q12H PRN 03/12/24 12/10/24 History (Mucinex Sinus-Max) Congestion BiPap Supplies #1 ea 05/13/24 09/08/24 Rx losartan 100 1 tab PO DAILY #90 tabs 09/08/24 12/10/24 Rx mg-hydrochlorothiazide 25 mg tablet tirzepatide 15 mg/0.5 mL 15 mg (0.5 mL) subcut Q7D #2 mL 10/27/24 12/10/24 Rx subcutaneous pen injector Patient History Medical History Abnormal electrocardiography Mass of left lower leg Morbid obesity with BMI of 60.0-69.9, adult Diabetes type 2, uncontrolled Surgical History History of hand surgery History of placement of ear tubes Hx of tonsillectomy (09/04/12) Family History Aunt Diabetes Grandmother (Paternal) Heart disease Father Hypertension Sleep apnea Diabetes Obesity Mother Sleep apnea Obesity Denies family history of Ovarian cancer Prostate cancer Depression Myocardial infarction Breast cancer Colorectal cancer Stroke Social History Smoking Status: Never smoker Second Hand Exposure: No; Do You Dip or Chew Tobacco: No; Hx Alcohol Use: Yes Alcohol type: beer, wine and hard liquor Alcohol Intake Frequency: Monthly or Less Hx Substance Use: No Preferred Language: Uzbek Communication Ability: Effective Visual Impairment: Limited Hearing Ability: Normal Social Insurance Administrator Required: No marital status: Current Living Situation: Spouse and Family current occupational status: 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 Vascular: 2+ radial bilaterally Abdomen: Soft, nontender Extremities: Well perfused, trace edema to mid shins, mild hyperpigmentation above the ankle Neuro: Nonfocal Psych: Alert orient x3, normal affect and mood Results & Data Vital Signs (Past 12 Hours) Vital Signs Temp Pulse Pulse Resp BP BP Pulse Ox 12/10/24 08:00 72 20 149/82 H 96 12/10/24 06:26 69 20 125/79 98 12/10/24 05:08 85 18 153/78 H 96 12/10/24 04:17 95 12/10/24 04:07 80 12/10/24 03:51 97.9 F 88 24 194/98 H 96 O2 Del Method 12/10/24 08:00 Room Air 12/10/24 06:26 Room Air 12/10/24 05:08 Room Air 12/10/24 04:17 Room Air 12/10/24 04:07 12/10/24 03:51 Room Air PG Care Time/CCT Total # of Minutes Spent Total Time Spent with Patient: Total time spent is greater than 50% in coordination of care (as documented) at patient's floor/unit and/or counseling patient: Coding Level of Care Code 15201 OFFICE CONSULT LVL Diagnoses Abnormal electrocardiography R94.31
--- NOTE | 2024-12-10 12:26 | XCELERA ---
[id number]
[2024-12-10 13:25] VITALS: BP 135/82; RESP 16; TEMP 97.7; O2SAT 98
[2024-12-10 15:41] VITALS: PULSE 62
--- NOTE | 2024-12-10 16:34 | Billing Data ---
Date of Service December 10, 2024 Coding Level of Care Code 46332 IN/OBS DISCH 30 MIN/LESS
--- NOTE | 2024-12-10 16:34 | Discharge Summary ---
Discharge Summary Date of Service December 10, 2024 Principal Dx & Hospital Course #1 = Principal Diagnosis (1) Chest pain: (2) Hypokalemia: (3) Hypomagnesemia: (4) Abnormal electrocardiography: Plan Patient is a 39-year-old male with past medical history of type II DM and hypertension. Patient presented due to chest pain after dinner that was relieved with nitroglycerin and aspirin in the ED. EKG showed ST changes in lateral leads, chronic changes in inferior leads. He is being admitted for cardiac workup including echocardiogram. Troponin 4.4. #chest paintroponins negative, sx most c/w upper GI. cardiology saw pt and felt no further w/u needed. safe/stable for home #type II DMon Mounjaro at home, most recent A1c 6.5%. #OSACPAP #HTNcontinue amlodipine and Losartanhydrochlorothiazide #obesityBMI 48.6. VTE ppx: Lovenox Dispo: safe/stable for home Notes For Next Care Provider Medication Changes From Visit none Admission HPI Per Admitting Provider Patient is a 39-year-old male with past medical history of type II DM and hypertension. Patient presented due to chest pain after dinner that was relieved with nitroglycerin and aspirin in the ED. EKG showed ST changes in lateral leads, chronic changes in inferior leads. He is being admitted for cardiac workup including echocardiogram. Troponin 4.4. Patient seen bedside. He stated that he was eating dinner when he developed sharp midsternal chest pain that gets worse with exertion and relieved with r est. 7/10 at worst, 2/10 at rest/currently. When patient moves around even going from laying to sitting up he exerts himself resulting in chest pain. It resolves itself in several seconds when he rests. Stated nitroglycerin and aspirin in ED did relieve some of his pain. Stated he has never had pain like this before. He typically is somewhat active and tries to walk around, denies chest pain during these episodes. He has been more sedentary for the past week as he has been feeling depressed. Denies any recent long travel or periods of sitting. Denies any recent trauma. Denies any worsening lower extremity edema, improved from baseline. Denies any calf pain. Low concern for DVT. Patient is nonhypoxic however stated chest pain does get worse with deep inspiration. He denies any recent fevers, chills, chest cough, congestion, nausea, vomiting. Does endorse diarrhea however recently increase his Mounjaro dosage. Denies any nicotine or alcohol use. Denies any personal history of IL, father did from sudden cardiac arrest however denies family history of IL. Does not use oxygen at baseline however does use CPAP at bedtime for sleep apnea. Got some medications yesterday, will be due this a.m. Wishes to be full code. Updated Medication List Medication Instructions Recorded Confirmed Type cetirizine 10 mg capsule (Zyrtec) 10 mg PO QAM 05/16/21 12/10/24 History amlodipine 5 mg tablet 5 mg PO QAM #30 tabs 01/22/24 12/10/24 Rx oxymetazoline 0.05 % nasal spray 2 spray intranasal Q12H PRN 03/12/24 12/10/24 History (Mucinex Sinus-Max) Congestion BiPap Supplies #1 ea 05/13/24 09/08/24 Rx losartan 100 1 tab PO DAILY #90 tabs 09/08/24 12/10/24 Rx mg-hydrochlorothiazide 25 mg tablet tirzepatide 15 mg/0.5 mL 15 mg (0.5 mL) subcut Q7D #2 mL 10/27/24 12/10/24 Rx subcutaneous pen injector Hospital Stay Data Consultations 12/10/24 05:45 ED Decision to Admit Stat 12/10/24 06:54 Consult Cardiology Routine Diagnostic Imagining Performed 12/10/24 05:44 CT angio chest PE protocol Stat Pending Results Patient Have Any Pending Studies at Discharge: No Discharge Instructions Given to Patient (Per Discharging Provider) You were admitted to the hospital for chest pain. Your labs, imaging, and echocardiogram were all reassuring that you did not have an acute cardiac or lung event. You were seen by cardiology and it was not felt that you needed any additional workup in the hospital. You should continue to follow up with your primary care provider and your money market dealer as usual. A discharge summary will be sent to your primary care physician to ensure continuity of care. Please bring this discharge summary with you to your next office appointment so that your provider can review it at that time. Follow-up appointments: Make a follow-up appointment with your PCP within the next week. It is very important that you follow up with them shortly after discharge from the hospital. Follow up with your money market dealer, Dr. Guardado, as scheduled. Keep all your follow-up appointments as already scheduled. If you cannot make an appointment, notify your provider. Medications: Your medication list has been reviewed and reconciled upon discharge to ensure accuracy and continuity of care. An updated list of all your medications is included with your hospital discharge paperwork. Please review this list closely, and make note of any changes. Take your medications as instructed; do not skip a dose of your medicines. Make sure all of your doctors know every medicine you are taking (including rtaf-awd-vfyeyrq medicines, vitamins, and supplements). Call your primary care provider before taking any new medicines (including iwup-btc-zaaabpp medicines, vitamins, and supplements), because some of these may interact with your current medications, or may make your symptoms worse. Tell your primary care provider if you cannot afford your medications. CONTACT YOUR PRIMARY CARE PROVIDER if you experience any of the following: Ongoing chest discomfort Difficulty following your treatment plan, or difficulty taking medications CALL 911 OR GO TO THE EMERGENCY DEPARTMENT if you experience any of the following: Sudden, severe abdominal pain or nausea/vomiting Severe chest pain, or chest pain that radiates (moves) to your jaw or arm Sudden, severe shortness of breath or difficulty breathing Thank you for allowing us to participate in your care. Total Time Total Time Spent Total Time Spent (In Minutes): <30
--- NOTE | 2024-12-10 21:57 | Electrocardiogram Report ---
Test Reason : Blood Pressure : */* mmHG Vent. Rate : 87 BPM Atrial Rate : 87 BPM P-R Int : 210 ms QRS Dur : 96 ms QT Int : 356 ms P-R-T Axes : 61 92 -10 degrees QTcB Int : 428 ms Sinus rhythm with 1st degree A-V block Rightward axis Septal infarct , age undetermined T wave abnormality, consider inferior ischemia Nonspecific ST abnormality Abnormal ECG When compared with ECG of 25-Feb-2024 07:33, Septal infarct is now Present Confirmed by Alec Royal ([id number]) on 12/10/2024 9:57:25 PM Referred By: REFERRED SELF Confirmed By: Alec Royal
[2024-12-11] MEDS ORDERED: ASPIRIN 81 MG ECTAB PO SCH (09:00)
== END 2024-12-10 15:57 | disposition home or self-care (01) ==
LOC: SUATTDRO → ED 03:47 → EDINP 03:47 → SUATTDRO 07:00 → 2N 11:07